=== PATIENT | female | born 1975 | race Caucasian/White ===

== ENCOUNTER 2017-09-06 21:28 | Emergency (ER) | payer MEDICAID ==
[~2017-09-06] VITALS: Ht 162.6 cm; Wt 86.2 kg
[2017-09-06 21:50] VITALS: BP 130/82
[2017-09-06] MEDS ORDERED: SYNTHROID125 MCG ORAL (21:50)
[2017-09-06] MEDS ORDERED: Norco 5mg/325mg tab ORAL ONE (22:00)
--- NOTE | 2017-09-06 22:15 | Emergency Room Report ---
History of Present Illness General Chief Complaint: Upper Extremity Injury Source: Patient Present Illness HPI Is a 42-year-old female who is right-hand dominant. She presents with injury to her left wrist. Onset was 2 days ago. She slipped at home and landed on her wrist. It was very painful. He does of the holiday she hasn't come in yet until now. Her neighbor, who is an EMT, place a splint on her wrist. She said is still hurting. Worse with movement. No other complaint. No loss of consciousness. No other injury. Pain is 8 out of 10. Better with rest. Allergies: Coded Allergies: No Known Allergies (Unverified , 09/06/17) Patient History Past Medical History: see triage record, old chart reviewed Past Surgical History: none Pertinent Family History: none Social History: Denies: smoking Last Menstrual Period: 6 weeks ago Now: No Immunizations: other Reviewed Nursing Documentation: PMH: Agreed; PSxH: Agreed Review of Systems Eye: Denies: eye pain, blurred vision ENT: Denies: ear pain, nose congestion, throat swelling Respiratory: Denies: cough, shortness of breath Cardiovascular: Denies: chest pain, palpitations Gastrointestinal: Denies: abdominal pain, diarrhea, nausea, vomiting Musculoskeletal: Reports: joint pain, joint swelling; Denies: back pain Skin: Denies: rash Neurological: Denies: headache, numbness Endocrine: Denies: increased thirst, increased urine Hematologic/Lymphatic: Denies: easy bruising All Other Systems: negative except mentioned in HPI Physical Exam Vital Signs Date Time Temp Pulse Resp B/P (MAP) Pulse Ox O2 Delivery O2 Flow Rate FiO2 09/06/17 21:43 98.0 70 16 130/82 96 Room Air 98.1 vitals normal Sp02 EP Interpretation: reviewed, normal General Appearance: well appearing, no apparent distress, alert Head: normocephalic, atraumatic Eyes: bilateral eye PERRL, bilateral eye EOMI ENT: hearing grossly normal, normal pharynx Neck: full range of motion, supple, no meningismus Respiratory: chest non-tender, lungs clear, normal breath sounds Cardiovascular #1: regular rate, rhythm, no murmur Gastrointestinal: normal bowel sounds, non tender, no mass, no organomegaly, no bruit, non-distended Musculoskeletal: back normal, gait/station normal, tender - over left distal radius. NVI. Radial pulse 2+. No deformity Psychiatric: mood/affect normal Skin: warm/dry Procedures Splinting Splinting : Consent: Verbal Location: left wrist Pre-Made Type: velcro Splint: volar Pre-Proc Neuro Vasc Exam: normal Post-Proc Neuro Vasc Exam: normal Patient Tolerated: Well Complications: None Medical Decision Making Diagnostic Impression: Primary Impression: Left wrist sprain Qualified Codes: S63.502A - Unspecified sprain of left wrist, initial encounter ER Course This patient presents with left wrist injury. No obvious fracture or dislocation. Most likely a sprain would ligament injury. Splinted and will be discharged home. She refused Rubicon so I gave her an Motrin. Other X-Ray Diagnostic Results Other X-Ray Diagnostic Results : X-Ray ordered: left wrist x-rays # of Views/Limited Vs Complete: 3 View Indication: Pain EP Interpretation: Yes Interpretation: no dislocation, no soft tissue swelling, no fractures Impression: No acute disease Electronically Signed by: Guanakito Bryan MD Last Vital Signs Date Time Temp Pulse Resp B/P (MAP) Pulse Ox O2 Delivery O2 Flow Rate FiO2 09/06/17 21:50 98.1 70 16 130/82 96 Room Air 98.1 Status: improved Disposition: HOME, SELF-CARE Condition: Stable Scripts Ibuprofen* (MOTRIN*) 600 Mg Tablet 600 MG ORAL Q8H PRN for For Pain, #30 TAB 0 Refills Prov: GUANAKITO BRYAN M.D. 09/06/17 Referrals: NOT CHOSEN MAARI/,REFERRING (PCP) Patient Instructions: Wrist Sprain Additional Instructions: Follow-up with your DrKatherine in 7 days. Ice pack to the area. Return if worse. GUANAKITO BRYAN M.D. Sep 06, 2017 22:15
[2017-09-06] MEDS ORDERED: IBUPROFEN600 MG ORAL (22:25)
[2017-09-06 22:50] VITALS: BP 130/82
--- NOTE | 2017-09-07 14:21 | Diagnostic Imaging Report ---
Clinical Indication:Trauma, status post fall Technique: 3 views of the left wrist Comparison: None Findings: No acute fractures. No dislocations. Joint spaces are preserved. There is a small cyst in the scaphoid. Impression: No acute bony trauma
== END 2017-09-06 22:50 | disposition home or self-care (01) ==
LOC: EMR 21:35
DX: S63.502A Unspecified sprain of left wrist, initial encounter (principal); W01.0XXA Fall on same level from slipping, tripping and stumbling without subsequent striking against object, initial encounter; Y92.009 Unspecified place in unspecified non-institutional (private) residence as the place of occurrence of the external cause
CPT/HCPCS: 99283